=== PATIENT | female | born 1940 | race Caucasian/White ===

== ENCOUNTER 2022-10-04 14:34 | Emergency (ER) | payer MEDICARE, OTHER ==
[2022-10-04] MEDS ORDERED: Diltiazem 25 MG/5 ML SDV IVPUSH ONE (15:35)
[2022-10-04] MEDS ORDERED: Sodium Chloride 0.9% 10 ML Syringe FLUSH PRN (15:35)
[2022-10-04] MEDS: Diltiazem 100 MG in Sodium Chloride 0.9% 100 ML IV SCH (16:55)
[2022-10-04] MEDS ORDERED: Digoxin 500 MCG/2 ML Amp IVPUSH ONE (20:37)
[2022-10-05] MEDS: Diltiazem 100 MG in Sodium Chloride 0.9% 100 ML IV SCH ×3 (01:38→18:30)
[2022-10-05] MEDS ORDERED: Temazepam 15 MG Cap PO ONE (01:48)
[2022-10-05] MEDS ORDERED: 50% Dextrose in Water 50 ML Syringe IVPUSH PRN (05:06)
[2022-10-05] MEDS ORDERED: Glucagon,Human Recombinant 1 MG Vial IM PRN (05:06)
[2022-10-05] MEDS ORDERED: Temazepam 15 MG Cap PO PRN (05:06)
[2022-10-05] MEDS ORDERED: Digoxin 125 MCG Tab PO SCH ×2 (05:15→09:00)
[2022-10-05] MEDS ORDERED: Warfarin 5 MG Tab PO SCH (05:15)
[2022-10-05] MEDS ORDERED: Levothyroxine 88 MCG Tab PO SCH (07:30)
[2022-10-05] MEDS: Insulin Lispro 100 Unit/ML 3 ML KwikPen SUBCUT SCH ×3 (08:17→17:09)
[2022-10-05] MEDS ORDERED: Metoprolol Succinate 50 MG Tab.ER PO SCH (09:00)
[2022-10-05] MEDS ORDERED: Pantoprazole 40 MG Tab.CR PO SCH (09:00)
[2022-10-05] MEDS ORDERED: Aspirin 81 MG Tab.Chew PO SCH (09:00)
[2022-10-05] MEDS ORDERED: Spironolactone 25 MG Tab PO SCH (09:00)
[2022-10-05] MEDS ORDERED: Furosemide 20 MG Tab PO SCH (09:00)
[2022-10-05] MEDS ORDERED: Amiodarone 200 MG Tab PO SCH (09:00)
[2022-10-05] MEDS ORDERED: Warfarin 5 MG Tab PO ONE (09:00)
[2022-10-05] MEDS ORDERED: Loperamide 2 MG Cap PO SCH (09:00)
[2022-10-05] MEDS ORDERED: Loperamide 2 MG Cap PO PRN (09:00)
[2022-10-05] MEDS ORDERED: Lisinopril 2.5 MG Tab PO SCH (09:00)
[2022-10-05] MEDS ORDERED: Insulin Glargine,Human Rec. Analog 100 Units/ML 3 ML Pen SUBCUT SCH (09:00)
[2022-10-05] MEDS: Timolol Maleate 0.5% Ophth Soln 5 ML Bottle EYEBOTH SCH ×2 (11:39→20:09)
[2022-10-05] MEDS ORDERED: atorvaSTATin 20 MG Tab PO SCH (21:00)
== END 2022-10-05 22:50 ==
LOC: JP.ED 14:34
DX: U07.1 COVID-19 (principal); S09.90XA Unspecified injury of head, initial encounter; I48.91 Unspecified atrial fibrillation; R29.6 Repeated falls; Z88.5 Allergy status to narcotic agent; Z79.899 Other long term (current) drug therapy; Z79.82 Long term (current) use of aspirin; Z79.4 Long term (current) use of insulin; Z79.01 Long term (current) use of anticoagulants
CPT/HCPCS: 36415; 70450; 80048; 81001; 82947; 84443; 85025; 85610; 93005; 96374; 96375; 96376; 99285; A9270; J1160; J1815; J3490; U0002

== ENCOUNTER 2023-01-31 21:15 | Emergency (ER) | payer MEDICARE, OTHER | END 2023-02-01 09:10 | LOC: JP.ED 21:15 | DX: S09.90XA Unspecified injury of head, initial encounter (principal); I48.91 Unspecified atrial fibrillation; I25.10 Atherosclerotic heart disease of native coronary artery without angina pectoris; E78.00 Pure hypercholesterolemia, unspecified; K21.9 Gastro-esophageal reflux disease without esophagitis; M19.90 Unspecified osteoarthritis, unspecified site; E10.9 Type 1 diabetes mellitus without complications; E03.9 Hypothyroidism, unspecified; Z86.16 Personal history of COVID-19; Z88.5 Allergy status to narcotic agent; Z79.82 Long term (current) use of aspirin; Z79.4 Long term (current) use of insulin; Z79.01 Long term (current) use of anticoagulants; Z79.899 Other long term (current) drug therapy; W06.XXXA Fall from bed, initial encounter; Y92.129 Unspecified place in nursing home as the place of occurrence of the external cause | CPT/HCPCS: 70450; 99283; 99285 ==

== ENCOUNTER 2023-07-02 17:56 | Emergency (ER) | payer MEDICARE, OTHER | END 2023-07-03 08:46 | LOC: JP.ED 17:56 | DX: S00.83XA Contusion of other part of head, initial encounter (principal); I25.10 Atherosclerotic heart disease of native coronary artery without angina pectoris; I48.91 Unspecified atrial fibrillation; K21.9 Gastro-esophageal reflux disease without esophagitis; Z88.5 Allergy status to narcotic agent; Z79.82 Long term (current) use of aspirin; Z79.4 Long term (current) use of insulin; Z79.01 Long term (current) use of anticoagulants; Z79.899 Other long term (current) drug therapy; E10.9 Type 1 diabetes mellitus without complications; W01.0XXA Fall on same level from slipping, tripping and stumbling without subsequent striking against object, initial encounter | CPT/HCPCS: 70450; 70486; 99283; 99284 ==

== ENCOUNTER 2024-02-07 10:03 | Inpatient (IN) | payer MEDICARE, OTHER ==
[2024-02-07 11:31] LABS: BASOPHILS ABSOLUTE AUTO 0.05 K/uL (0.00-0.10); BASOPHILS PERCENT AUTO 0.4 % (0.1-1.3); EOSINOPHILS ABSOLUTE AUTO 0.07 K/uL (0.00-0.40); EOSINOPHILS PERCENT AUTO 0.6 % (0.0-5.4); HEMATOCRIT 33.1 % (34.3-46.0); HEMOGLOBIN 10.8 g/dL (11.2-15.5); IMMATURE GRAN PERCENT AUTO 0.8 % (0.0-0.7); LYMPHOCYTES PERCENT AUTO 17.6 % (11.4-47.7); MEAN CORPUSCULAR HEMOGLOBIN 32.1 pg (31.6-35.5); MEAN CORPUSCULAR HGB CONC 32.6 g/dL (31.6-35.5); MEAN CORPUSCULAR VOLUME 98.5 fL (81.4-99.0); MONOCYTES ABSOLUTE AUTO 1.25 K/uL (0.20-0.90); MONOCYTES PERCENT AUTO 10.5 % (3.3-12.6); NEUTROPHILS ABSOLUTE AUTO 8.33 K/uL (1.0-7.6); NEUTROPHILS PERCENT AUTO 70.1 % (40.0-78.1); PLATELET COUNT,PLT 185 K/uL (130-375); RED BLOOD CELL COUNT 3.36 M/uL (3.77-5.24); WHITE BLOOD CELL COUNT,WBC 11.9 K/uL (3.2-11.0)
[2024-02-07 11:47] LABS: INR 2.4
[2024-02-07 11:50] LABS: A/G RATIO 1.2 (1.2-2.2); ALANINE AMINOTRANSFERASE,ALT 24 U/L (12-78); ALBUMIN 3.9 g/dL (3.4-5.0); ALKALINE PHOSPHATASE 54 U/L (46-116); ASPARTATE AMNIOTRANSFERASE,AST 26 U/L (15-37); BLOOD UREA NITROGEN,BUN 16 mg/dL (7-18); CALCIUM 9.3 mg/dL (8.5-10.1); CARBON DIOXIDE,CO2 29 mmol/L (21-32); CHLORIDE,CL 100 mmol/L (100-108); CREATININE 1.1 mg/dL (0.6-1.0); EST CRCL DRUG DOSING (CG) 39.06 mL/min; ESTIMATED GFR 50 mL/min (>60); GLUCOSE RANDOM 161 mg/dL (74-106); POTASSIUM,K 4.5 mmol/L (3.6-5.2); PROTEIN TOTAL,TP 7.2 g/dL (6.4-8.2); SODIUM,NA 137 mmol/L (140-148)
[2024-02-07 11:51] LABS: ANION GAP 12.5 mmol/L (5.0-14.0)
[2024-02-07] MEDS: Phytonadione 10 MG in Sodium Chloride 0.9% 50 ML IV ONE (12:59)
[2024-02-07] MEDS: Ondansetron 4 MG/2 ML SDV IVPUSH ONE (13:44)
[2024-02-07] MEDS: Acetaminophen 325 MG Tab PO ONE (15:22)
[2024-02-07] MEDS: droPERidol 5 MG/2 ML SDV IVPUSH ONE (16:06)
[2024-02-07 17:23] LABS: INR 1.4; PROTHROMBIN TIME 13.7 sec (9.2-10.6)
[2024-02-07 18:01] LABS: CORONAVIRUS COVID-19 NAA NEGATIVE (NEGATIVE); INFLUENZA A NAA NEGATIVE (NEGATIVE); INFLUENZA B NAA NEGATIVE (NEGATIVE); RESPIRATORY SYNCYTIAL VIR NAA NEGATIVE (NEGATIVE)
[2024-02-07] MEDS ORDERED: Magnesium Hydroxide 400 MG/5 ML Susp 30 ML Cup PO PRN (19:42)
[2024-02-07] MEDS ORDERED: Ondansetron 4 MG Tab.DIS PO PRN (19:42)
[2024-02-07] MEDS ORDERED: Sennosides/Docusate Sodium 50-8.6 MG Tab PO PRN (19:42)
[2024-02-07] MEDS: traZODone 50 MG Tab PO SCH (21:41)
[2024-02-07] MEDS: Timolol Maleate 0.5% Ophth Soln 5 ML Bottle EYEBOTH SCH (22:00)
[2024-02-08] MEDS: Morphine 10 MG/0.5 ML Oral Syringe PO PRN (05:20)
[2024-02-08] MEDS: Acetaminophen 325 MG Tab PO PRN (05:21)
[2024-02-08] MEDS: Levothyroxine 88 MCG Tab PO SCH (08:23)
[2024-02-08] MEDS: Metoprolol Succinate 50 MG Tab.ER PO SCH (09:13)
[2024-02-08] MEDS: Lisinopril 2.5 MG Tab PO SCH (09:13)
[2024-02-08] MEDS: Citalopram 20 MG Tab PO SCH (09:13)
[2024-02-11] MEDS: LORazepam ORAL Concentrate 1MG/0.5ML U/D PO PRN (11:40)
[2024-02-11] MEDS: Atropine Sulfate 1% Ophth 2 ML Drops OP PRN (22:45)
== END 2024-02-12 10:00 | disposition expired | DRG 951 ==
LOC: JP.ED 10:03 → JP.MS 17:53
PROVIDERS: ADMIT Internal Medicine; ATTEND Hospitalist
DX: S06.360A Traumatic hemorrhage of cerebrum, unspecified, without loss of consciousness, initial encounter (principal); Z51.5 Encounter for palliative care; S06.2XAA Diffuse traumatic brain injury with loss of consciousness status unknown, initial encounter; F03.93 Unspecified dementia, unspecified severity, with mood disturbance; F03.94 Unspecified dementia, unspecified severity, with anxiety; Z66 Do not resuscitate; I48.91 Unspecified atrial fibrillation; I25.10 Atherosclerotic heart disease of native coronary artery without angina pectoris; E78.00 Pure hypercholesterolemia, unspecified; W18.30XA Fall on same level, unspecified, initial encounter; K21.9 Gastro-esophageal reflux disease without esophagitis; M19.90 Unspecified osteoarthritis, unspecified site; E10.9 Type 1 diabetes mellitus without complications; E03.9 Hypothyroidism, unspecified; M47.816 Spondylosis without myelopathy or radiculopathy, lumbar region; W19.XXXA Unspecified fall, initial encounter; Z86.16 Personal history of COVID-19; Z79.01 Long term (current) use of anticoagulants; Z88.5 Allergy status to narcotic agent; Z88.8 Allergy status to other drugs, medicaments and biological substances; Z79.82 Long term (current) use of aspirin; Z79.899 Other long term (current) drug therapy; Z79.4 Long term (current) use of insulin; Z86.010 Personal history of colon polyps; Z98.49 Cataract extraction status, unspecified eye; Z95.2 Presence of prosthetic heart valve; Z98.890 Other specified postprocedural states
CPT/HCPCS: 0241U; 36415; 36430; 70450; 73140; 80053; 85025; 85610; 86900; 86901; 96365; 96375; 99223; 99233; 99238; 99285; A9270-GY; J1790; J2405; J3430; J3490; P9017